=== PATIENT | female | born 1995 | race Caucasian/White ===

== ENCOUNTER 2019-08-30 09:52 | Emergency (ER) | payer SELFPAY ==
[2019-08-30] MEDS ORDERED: KETOROLAC TROMETHAMINE 30 MG/1ML VIAL IV ONE (09:57)
[2019-08-30] MEDS ORDERED: ORPHENADRINE CITRATE 60 MG/2 ML ML IV ONE (09:57)
[2019-08-30] MEDS ORDERED: HYDROcodone /APAP 5/325 1 EACH TABLET PO ONE (09:57)
--- NOTE | 2019-08-30 10:00 | ED Physician Documentation ---
General Adult - HISTORIAN Historian: patient - HPI Stated Complaint: mid back pain Chief Complaint: General Adult Additional Information: Patient presents to ED with mid back pain after slipping and falling at work today. Patient states she slipped on the wet floor and caught herself with her elbows between to sink bowls. Since that time she has had bilateral muscle spasms in her back and sides. She also had dysuria and urinary frequency which began yesterday. Patient reports taking a co-worker Cipro yesterday x 2. The Cipro has improved her urinary symptoms. Patient is currently on her period, she took Plan B pill last Sunday. Onset: minutes (30) Timing: still present Severity: moderate - ROS CONST: no problems EYES/ENT: none CVS/RESP: none GI/: none MS/SKIN/LYMPH: none NEURO/PSYCH: denies: headache - PAST HX Past History: none Other History: none Surgeries/Procedures: none Allergies/Adverse Reactions: Allergies Allergy/AdvReac Type Severity Reaction Status Date / Time Sulfa (Sulfonamide Allergy Unknown Verified 08/30/19 09:55 Antibiotics) Home Medications: Ambulatory Orders Medication Instructions Recorded CiproFLOXacin HCL [Cipro] 500 mg PO BID 5 Days #10 tablet 08/30/19 Ketorolac Tromethamine [Toradol] 10 mg PO Q6H PRN 5 Days #20 tablet 08/30/19 Levonorgestrel [Plan B One-Step] 1.5 mg PO 1T 08/30/19 Orphenadrine (Nf) [Norflex (Nf)] 100 mg PO BID #20 tablet.er 08/30/19 Ranitidine HCl [Zantac] 150 mg PO DAILY 08/30/19 - SOCIAL HX Smoking History: cigarettes Alcohol Use: occasionally Drug Use: marijuana - FAMILY HX Family History: No - VITAL SIGNS Vital Signs: Vital Signs Temp Pulse Resp BP Pulse Ox 98.1 F 82 16 124/74 96 08/30/19 09:53 08/30/19 09:53 08/30/19 09:53 08/30/19 09:53 08/30/19 09:53 - REVIEWED ASSESSMENTS Nursing Assessment Reviewed: Yes Vitals Reviewed: Yes ED Results Lab/Radiology - Lab Results Lab Results: UA- +1 blood HCG - negative - Orders Orders: ED Orders Category Date Time Status Place IV Lock 1T Care 08/30/19 09:57 Ordered UA W/MICRO IF INDICATED Routine Lab 08/30/19 09:57 Ordered URINE HCG Stat Lab 08/30/19 Uncollected HYDROcodone /APAP 5/325 [[place] 5/325] Med 08/30/19 09:57 Once 1 each PO NOW ONE Ketorolac Tromethamine [Toradol] Med 08/30/19 09:57 Once 30 mg IV NOW ONE Orphenadrine Citrate [Norflex] Med 08/30/19 09:57 Once 60 mg IV NOW ONE General Adult Physical Exam - PHYSICAL EXAM GENERAL APPEARANCE: mild distress EENT: NATHAN NECK: supple RESPIRATORY: no resp distress, breath sounds normal CVS: reg rate & rhythm, heart sounds normal ABDOMEN: soft, normal bowel sounds, non-tender BACK: normal inspection, other (muscle spasm thoracic erector spinae) EXTREMITIES: non-tender, no edema NEURO: oriented X3, motor nml, mood/affect nml Discharge Clincal Impression: Musculoskeletal back pain Acute cystitis Qualifiers: Hematuria presence: without hematuria Qualified Code(s): N30.00 - Acute cystitis without hematuria Prescriptions: CiproFLOXacin HCL [Cipro] 500 mg PO BID 5 Days #10 tablet Ketorolac Tromethamine [Toradol] 10 mg PO Q6H PRN 5 Days #20 tablet PRN Reason: back pain Orphenadrine (Nf) [Norflex (Nf)] 100 mg PO BID #20 tablet.er Referrals: Primary Doctor,No [Primary Care Provider] - 2 Days Additional Instructions: 1. Take antibiotic until gone 2. Norflex and Toradol as needed for back pain 3. Apply ice to affected area as needed for comfort x 3 days then apply heat as needed 4. Apply biofreeze, bengay, icy hot, asprecreme or lidocaine patches to affected area as needed for comfort 5. Stay active 6. Follow up with PCP within 1 week 7. Return to ER for new or worsening symptoms Condition: Stable Disposition: 01 HOME, SELF-CARE Decision to Admit: NO Date of Decison to Admit: 08/30/19 Decision Time: 11:11
[2019-08-30 11:33] VITALS: BP 112/63
[2019-08-30 11:42] LABS: APPEARANCE,URINE CLEAR (CLEAR); COLOR,URINE YELLOW (YELLOW); OCCULT BLOOD,URINE 1+ (NEGATIVE); URINE HCG NEGATIVE (NEGATIVE); UROBILINOGEN URINE 0.2 Eu (0.2-1.0)
== END 2019-08-30 11:21 | disposition home or self-care (01) ==
LOC: ED 09:52
DX: M54.9 Dorsalgia, unspecified (principal); N30.00 Acute cystitis without hematuria
CPT/HCPCS: 81002; 81025; 96374; 96375; 99284; A9270; J1885; J2360; S1016